=== PATIENT | female | born 1975 | race Caucasian/White ===

== ENCOUNTER 2017-06-04 12:53 | Observation (INO) | payer OTHER ==
[2017-06-04] MEDS ORDERED: ONDANSETRON 4 MG/2 ML VIAL IVP ONE (13:35)
[2017-06-04] MEDS ORDERED: NS 1,000 ML IV ONE (13:35)
[2017-06-04] MEDS ORDERED: MECLIZINE HCL 25 MG TAB PO ONE (13:36)
--- NOTE | 2017-06-04 13:43 | EDPHY ---
H & P Time Seen by Provider: 06/04/17 13:25 HPI/ROS: CHIEF COMPLAINT: Dizziness HISTORY OF PRESENT ILLNESS: Patient has a diagnosis of multiple sclerosis since 2011. Patient started having symptoms at around 7:00 a.m. today. She had bouts of dizziness and disorientation. On further questioning her symptoms have been present constantly since 10:00 a.m. and she describes it as dizziness which is described this is a sensation of movement even when she is still, it is worse with turning her head or moving her eyes. It gets better when she remains still and closes her eyes, associated with nausea. She has also had over the last the 2 weeks some increasing fatigue and numbness and tingling in all of her extremities which she thinks may be an exacerbation of her MS symptoms, since this is typical for her. REVIEW OF SYSTEMS: Eye: no change in vision or double vision ENT: no sore throat Cardiac: no chest pain or syncope Pulmonary: no cough or SOB Abdomen: no vomiting, diarrhea, abdominal pain Musculoskeletal: no back pain or neck pain or recent trauma Skin: no rash Neuro: no headache Constitutional: no fever : no urinary symptoms A comprehensive 10 point review of systems is otherwise negative aside from elements mentioned in the history of present illness. PAST MEDICAL HISTORY: Multiple sclerosis Social history: Nonsmoker General Appearance: Alert and conversant, cooperative. Eyes: No scleral icterus. EOMI. ENT, Mouth: Normal mucous membranes. Normal tympanic membranes. Respiratory: Normal respiratory effort, breath sounds equal, lungs are clear to auscultation. Cardiovascular: Regular rate and rhythm. Gastrointestinal: Abdomen is soft and non tender. Neurological: Alert and oriented x3. Normally conversant. Face symmetric, normal movement and sensation in all extremities. No pronator drift and normal [id number] bilaterally. Does not have truncal ataxia. Skin: Warm and dry, no rashes. Musculoskeletal: No peripheral edema and no joint swelling. Psychiatric: Not agitated. Emergency Department course/MDM: Patient has symptoms of peripheral vertigo. Zofran 4 mg IV and meclizine 25 mg p. o., labs and discussion with her neurologist. Nausea and dizziness with eye motion testing. Discussed with Francisco for Yoko 1412. 1456: Discussed with the patient 's wholesale agronomist neurolgist Dr. Singh; her recommendation is for admission for IV steroids, 1g IV solumedrol daily for at least 3 days, patient is agreeable. She has had this before, understands risks benefits alternatives, consents. I think it is unlikely she has central vertigo , vertebral artery dissection, or cerebellar bleed or ischemia. She will get a Neurology consultation from Dr. diego while she is here. Smoking Status: Never smoked Constitutional: Initial Vital Signs Temperature (C) 36.8 C 06/04/17 13:03 Heart Rate 103 H 06/04/17 13:03 Respiratory Rate 16 06/04/17 13:03 Blood Pressure 133/83 H 06/04/17 13:03 O2 Sat (%) 98 06/04/17 13:03 O2 Delivery Mode Room Air Allergies/Adverse Reactions: Penicillins Allergy (Severe, Verified 06/04/17 17:17) Home Medications: Medication Instructions Recorded Amitriptyline HCl [Elavil 50 mg 75 mg PO DAILY 06/04/17 (*)] Cetirizine [ZyrTEC 10 mg (*)] 10 mg PO PRN PRN 06/04/17 Cholecalciferol Vit D3 [Vitamin D3 1,000 units PO DAILY 06/04/17 (*)] Ibuprofen [Motrin (*)] 200 mg PO PRN PRN 06/04/17 Teriflunomide [Aubagio] 14 mg PO DAILY 06/04/17 Medical Decision Making - Diagnostics EKG Interpretation: 12-lead EKG interpreted by me; official reading is in trace master. My interpretation is sinus rhythm rate 96 no ischemic changes. Differential Diagnosis: Differential diagnosis considered for dizziness including but not limited to peripheral and central causes of vertigo, orthostatic causes including dehydration, and blood loss. Consult/[facility]mit [facility]: [facility] [place] [id number] - Data Points Laboratory Results: Laboratory Results 06/04/17 13:48 06/04/17 13:48 06/04/17 06/04/17 06/04/17 13:48 13:48 13:48 WBC 7.99 10^3/uL 10^3/uL (3.80-9.50) RBC 4.55 10^6/uL 10^6/uL (4.18-5.33) Hgb 13.3 g/dL g/dL (12.6-16.3) Hct 41.3 % % (38.0-47.0) MCV 90.8 fL fL (81.5-99.8) MCH 29.2 pg pg (27.9-34.1) MCHC 32.2 g/dL L g/dL (32.4-36.7) RDW 13.5 % % (11.5-15.2) Plt Count 244 10^3/uL 10^3/uL (150-400) MPV 10.5 fL fL (8.7-11.7) Neut % (Auto) 54.3 % % (39.3-74.2) Lymph % (Auto) 27.4 % % (15.0-45.0) [place] % (Auto) 10.5 % % (4.5-13.0) Eos % (Auto) 6.1 % % (0.6-7.6) Baso % (Auto) 1.4 % % (0.3-1.7) Nucleat RBC Rel Count 0.0 % % (0.0-0.2) Absolute Neuts (auto) 4.34 10^3/uL 10^3/uL (1.70-6.50) Absolute Lymphs (auto) 2.19 10^3/uL 10^3/uL (1.00-3.00) Absolute Monos (auto) 0.84 10^3/uL H 10^3/uL (0.30-0.80) Absolute Eos (auto) 0.49 10^3/uL H 10^3/uL (0.03-0.40) Absolute Basos (auto) 0.11 10^3/uL H 10^3/uL (0.02-0.10) Absolute Nucleated RBC 0.00 10^3/uL 10^3/uL (0-0.01) Immature Gran % 0.3 % % (0.0-1.1) Immature Gran # 0.02 10^3/uL 10^3/uL (0.00-0.10) Sodium 140 mEq/L mEq/L (134-144) Potassium 3.8 mEq/L mEq/L (3.5-5.2) Chloride 104 mEq/L mEq/L (97-110) Carbon Dioxide 24 mEq/l mEq/l (22-31) Anion Gap 12 mEq/L mEq/L (8-16) BUN 7 mg/dL mg/dL (7-23) Creatinine 0.7 mg/dL mg/dL (0.6-1.0) Estimated GFR > 60 Glucose 104 mg/dL H mg/dL (70-100) Calcium 9.4 mg/dL mg/dL (8.5-10.4) Creatine Kinase 124 IU/L IU/L (0-156) Beta HCG, Qual NEGATIVE Medications Given: Discontinued Medications Sodium Chloride (Ns) 1,000 mls @ 0 mls/hr IV EDNOW ONE; Wide Open PRN Reason: Protocol Stop: 06/04/17 13:36 Last Admin: 06/04/17 13:53 Dose: 1,000 mls Methylprednisolone Sodium Succinate 1 gm/ Sodium Chloride 108 mls @ 108 mls/hr IV EDNOW ONE Stop: 06/04/17 15:55 Last Admin: 06/04/17 15:46 Dose: 108 mls Meclizine HCl (Meclizine Hcl) 25 mg PO EDNOW ONE Stop: 06/04/17 13:37 Last Admin: 06/04/17 14:26 Dose: 25 mg Ondansetron HCl (Zofran) 4 mg IVP EDNOW ONE Stop: 06/04/17 13:36 Last Admin: 06/04/17 13:54 Dose: 4 mg Departure - Departure Disposition: [facility] Clinical Impression: Vertigo, Multiple sclerosis Condition: Good
--- NOTE | 2017-06-04 13:57 | CPEKG ---
Heart Rate: 96 RR Interval: 625 P-R Interval: 160 QRSD Interval: 92 QT Interval: 368 QTC Interval: 465 P Leonard: 44 QRS Leonard: 22 T Wave Leonard: 18 EKG Severity - NORMAL ECG - EKG Impression: SINUS RHYTHM Electronically Signed By: Barrera Giron 04-Jun-2017 13:59:20
[2017-06-04 13:58] LABS: % IMMATURE GRANULYOCYTES 0.3 % (0.0-1.1); ABSOLUTE IMMATURE GRANULOCYTES 0.02 10^3/uL (0.00-0.10); ADD DIFF? NO; ADD MORPH? NO; ADD SCAN? NO; ATYPICAL LYMPHOCYTE FLAG 0 (0-99); FRAGMENT RBC FLAG 0 (0-99); HEMATOCRIT 41.3 % (38.0-47.0); HEMOGLOBIN 13.3 g/dL (12.6-16.3); LEFT SHIFT FLG 0 (0-99); LIPEMIA HEMOLYSIS FLAG 80 (0-99); MEAN CELL HEMOGLOBIN 29.2 pg (27.9-34.1); MEAN CELL HEMOGLOBIN CONCENTR. 32.2 g/dL (32.4-36.7); MEAN CELL VOLUME 90.8 fL (81.5-99.8); MEAN PLATELET VOLUME 10.5 fL (8.7-11.7); PLATELET CLUMPS FLAG 0 (0-99); PLATELET COUNT 244 10^3/uL (150-400); RED BLOOD CELL COUNT 4.55 10^6/uL (4.18-5.33); RED CELL DISTRIBUTION WIDTH 13.5 % (11.5-15.2)
[2017-06-04 14:31] LABS: ANION GAP 12 mEq/L (8-16); CALCIUM 9.4 mg/dL (8.5-10.4); CARBON DIOXIDE 24 mEq/l (22-31); CHLORIDE 104 mEq/L (97-110); CREATININE 0.7 mg/dL (0.6-1.0); GLOMERULAR FILTRATION RATE > 60; GLUCOSE 104 mg/dL (70-100); POTASSIUM 3.8 mEq/L (3.5-5.2); SODIUM 140 mEq/L (134-144)
[2017-06-04] MEDS ORDERED: methylPREDNISolone SOD SUCC 1 GM in NS 100 ML IV ONE (14:56)
--- NOTE | 2017-06-04 15:03 | PDCONSULT ---
Rn Cardiovascular Note: I will see patient on rounds tomorrow am. Recommend hospitalist give patient 3 days of 1,000 mg IV solumederol and order brain/cervical MRI w/ and w/o contrast. Call me sooner for any questions.
[2017-06-04] MEDS ORDERED: ONDANSETRON DISINTEGRATING 4 MG TAB PO PRN (17:21)
[2017-06-04] MEDS ORDERED: ACETAMINOPHEN 325 MG TAB PO PRN (17:21)
[2017-06-04] MEDS ORDERED: ONDANSETRON 4 MG/2 ML VIAL IVP PRN (17:21)
[2017-06-04] MEDS ORDERED: IBUPROFEN 200 MG TAB PO PRN (17:22)
[2017-06-04] MEDS ORDERED: CETIRIZINE 10 MG TAB PO PRN (17:22)
--- NOTE | 2017-06-04 18:15 | GHP ---
[f rep st] HISTORY AND PHYSICAL DATE OF ADMISSION: 06/04/2017 CHIEF COMPLAINT: Vertigo, numbness and tingling. HISTORY OF PRESENT ILLNESS: A 42-year-old female with past history of multiple sclerosis diagnosed in 2011, presenting because of concern that her multiple sclerosis symptoms have been ramped up. Over the past 2 weeks she has had increased numbness and tingling in her hands, arms, legs and feet. She has had exquisite muscle fatigue to the point where her legs and arms feel like Jell-O. At work today she noticed episodes of vertigo with associated nausea. Did not have emesis. She felt like she was unstable and disoriented. She did not lose consciousness. She had several episodes today but then a strong one today , which prompted her to come to the hospital. A new symptom she has never had was sharp pain behind her right eye, that was stabbing in nature that lasted 1 minute. She thinks she has had 10 flares of her multiple sclerosis in the past. She is followed by Dr. Sis Babcock as an outpatient. This is her third hospitalization. She denies new headaches. Has intermittent migraines. No visual changes. No fevers, chills, or sweats. No dysuria or urinary frequency. She does endorse increased stressors at home because they are remodeling their condo and work has been more demanding as well. REVIEW OF SYSTEMS: I completed a 10-point review of systems. PAST MEDICAL HISTORY: Multiple sclerosis diagnosed in 2011, IBS. PAST SURGICAL HISTORY: Appendectomy, lumbar spine. SOCIAL HISTORY: Works at [employer]. , with her partner lives here in town. Has 1 drink a month. No illicits or tobacco. FAMILY HISTORY: On maternal side brain cancer. ALLERGIES: Penicillin, anaphylactic. HOME MEDICATIONS: Aubagio, Motrin, vitamin D3, amitriptyline 75 mg daily, Zyrtec as needed. PHYSICAL EXAM: VITAL SIGNS: Temperature 36.9, blood pressure 128/92, heart rate is 104, respirations 12. 94% on room air. GENERAL: Mildly overweight female in no acute distress. HEENT: PERRLA. EOMI. Oropharynx clear. CV: Regular rate and rhythm. No murmurs, gallops, rubs. LUNGS: Clear to auscultation bilaterally. ABDOMEN: Soft, nontender, nondistended. Positive bowel sounds. : No suprapubic tenderness. MUSCULOSKELETAL: 5/5 upper and lower extremity strength. NEURO: 2 through 12 intact. Normal sensation to touch. Reflexes are symmetric biceps, patellar. Alert and oriented x3. LABS: WBC 7.9, hemoglobin 13, hematocrit 41, platelets 244. Sodium 140, potassium 3.8, chloride 104, carbon dioxide 24, creatinine 0.7, glucose 104, calcium 9.4. CK is 124. Negative . EKG personally reviewed by me, normal sinus rhythm. ASSESSMENT AND PLAN: 1. Concern for multiple sclerosis flare: increased numbness, tingling, and fatigue, concerning multiple sclerosis flare. No evidence of infection, but will check a UA. She is followed by Dr. Sis Babcock as an outpatient. She has been hospitalized 2 other times for flares. She is currently on Aubagio. Neurology was called from the emergency room. Recommended intravenous Solu- Medrol, which has been started. We will obtain MRI of brain and cervical spine. Neurology to evaluate in the morning. Resume home medications. 2. Vertigo: Possibly secondary to multiple sclerosis flare. MRI brain is pending. 3. Irritable bowel syndrome, stable. 4. Diet: Regular. 5. Deep venous thrombosis prophylaxis: Low risk. 6. Disposition: Patient warrants observation admission, given vertigo and symptoms concerning for multiple sclerosis flare warranting intravenous steroids and neurology consult. /[id number]/MODL MTDD
[2017-06-04] MEDS ORDERED: GADOBUTROL 10 ML VIAL IVP ONE (18:39)
[2017-06-04 19:20] LABS: COLOR PALE YELLOW; LEUKOCYTE ESTERASE,URINE NEGATIVE (NEGATIVE); NITRITE,URINE NEGATIVE (NEGATIVE)
[2017-06-04 19:33] LABS: MUCUS TRACE /lpf (NONE-1+)
[2017-06-04] MEDS ORDERED: Teriflunomide [Aubagio] 14 MG PO SCH (21:00)
[2017-06-04] MEDS ORDERED: AMITRIPTYLINE HCL 50 MG TAB PO SCH (21:00)
[2017-06-05] MEDS ORDERED: methylPREDNISolone SOD SUCC 1 GM in D5W 100 ML IV SCH (06:30)
[2017-06-05 08:36] VITALS: BP 139/94; PULSE 109; RESP 16; TEMP 97.9; O2SAT 96
[2017-06-05] MEDS ORDERED: CHOLECALCIFEROL VIT D3 1,000 UNITS TAB PO SCH (09:00)
--- NOTE | 2017-06-05 11:35 | ASMTCMCOM ---
CM Note CM Note Notes: Pt in for MS flare, per PT pt no longer has dizziness and has showered, dressed and is ready for dc. Pt is scheduled for outpt infusion for IV steroid dose tomorrow at 8am, no other needs identified. Will dc home with support of when medically stable, CM available for any changes. Date Signed: 06/05/2017 11:34 AM Electronically Signed By:Terese Gonzalez RN
--- NOTE | 2017-06-05 14:08 | NEUROPROG ---
Assessment: [id number] CC: Multiple Sclerosis, Dizziness HPI: Pt with multiple sclerosis (MS) since [address] Sis Kathleen ( neurologist) presents to the [facility] ER 06/04/17 with exacerbation of her MS. Over past 2 weeks she noted increased paresthesias in hands/arms/legs/feet, fatigue, dizziness, right retro-orbital pain, and nausea. She reported her outpt neurologist told her to go to the hospital for 3 days of IV steroids and a brain MRI. Brain/cervical MRI performed which showed no enhancing lesions but did show a few white matter lesions that could be consistent with demyelinating disease. I saw her on 06/05/17 and confirmed above history. PMHx: Multiple Sclerosis (MS) 2011, IBS, appi, lumbar spine Home Meds: Aubagio, motrin, Vitamin D, Elavil 75 mg qd, Zyrtec SHx: no tobacco FHx: brain cancer ROS: Pt denied acute fever, total vision loss, active severe chest pain, respiratory failure, total body severe rash, total bowel/bladder incontinence, psychosis, active seizures, or active bleeding O: VS reviewed General: Alert Eyes: Fundoscopic exam not able to visualize optic disks CV: Heart RRR, no murmur, no carotid bruit Lungs: Clear to auscultation bilaterally, no rhonci or rales Neuro: - Mental: . Oriented x person/place/date . concentration appears normal . speech fluency/comprehension normal . memory appears normal . fund of knowledge appear intact - Cranial Nerves: . II: PERRL, VFFTC . III/IV/: EOMI, no nystagmus, normal smooth pursuits, no Ptosis . V: facial sensation intact to LT . VII: face symmetric to eye closure and smile . VIII: hearing intact to conversation . IX/X: uvula raises symmetrically . XI: SCM 5/5 B/L strength . XII: tongue protrudes midline w/nl strength - Motor: . Tone: normal tone in all 4 extrem . 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 No evidence for abnormal enhancement. (I personally visualized the images on 06/04/17) 06/04/17- C-spine MRI w/ and w/o con: Multiple focal areas of abnormal signal intensity in the brainstem and cervical cord compatible with demyelinating disease as multiple sclerosis. There is a predominant new lesion in the right side of the cord at the level of C3-C4. Question also some slight increased visualization or involvement of the lower cervical and upper thoracic spine. No evidence for abnormal enhancement. 2. Mild multilevel degenerative disk disease of the cervical spine Assessment: 1. Multiple Sclerosis 2. Exacerbation of prior multiple sclerosis symptoms (paresthesias, fatigue) and new vertigo: Unclear cause as no infection or enhancing lesions or stroke seen on brain/cervical MRI. Likely these symptoms are from her known multiple sclerosis. Pt reports her outpatient neurologist wants her given 3 days of IV steroids so will comply with that treatment plan. Plan: - IV Solumedrol 1,000 mg/day x 3 days - Continue Aubagio - F/U with Dr. Sis Kathleen within 1 week of hospital discharge Objective: Vital Signs Temp Pulse Resp BP Pulse Ox 36.6 C 109 H 16 139/94 H 96 06/05/17 08:00 06/05/17 08:00 06/05/17 08:00 06/05/17 08:00 06/05/17 08:00 06/04/17 06/05/17 06/06/17 05:59 05:59 05:59 Intake Total 1000 Output Total 1500 Balance -500 Allergies/Adverse Reactions: Penicillins Allergy (Severe, Verified 06/04/17 17:17)
--- NOTE | 2017-06-05 14:22 | ASDISCHSUM ---
Discharge Information Plan Status:Home with No Needs Medically Cleared to Leave: Discharge Date:06/05/2017 12:35 PM CM D/C Disposition:Home, Routine, Self-Care ADT D/C Disposition:Home, Routine, Self-Care Projected Discharge Date:06/05/2017 12:35 PM Transportation at D/C:Family Discharge Delay Reason: Follow-Up Date:06/05/2017 12:35 PM Discharge Slot: Final Diagnosis: Placement Information Patient Contact Information Contact Name:SOPHIE Relationship: Address:[id number] [place] [address] City:[place] Alternate Phone: [facility]/Zip Code:[place] [address] Email: Financial Information Financial Class:HMO and PPO Plans Primary Plan Desc:[facility] Primary Plan Number:[id number] Secondary Plan Desc: Secondary Plan Number: Assessment Information [facility] CM Progress Note CM Note CM Note Notes: Pt in for MS flare, per PT pt no longer has dizziness and has showered, dressed and is ready for dc. Pt is scheduled for outpt infusion for IV steroid dose tomorrow at 8am, no other needs identified. Will dc home with support of when medically stable, CM available for any changes. Date Signed: 06/05/2017 11:34 AM Electronically Signed By:Terese Gonzalez RN Intervention Information
--- NOTE | 2017-06-05 14:23 | GDS ---
[f rep st] DISCHARGE SUMMARY DISCHARGE DIAGNOSIS: Multiple sclerosis exacerbation. CONSULTATION: Dr. Diego of Neurology. STUDIES AND PROCEDURES: 1. Cervical spine MRI. 2. Brain MRI. PHYSICAL EXAM: GENERAL: The patient is alert. VITAL SIGNS: Afebrile at 36.6, pulse is 109, respir atory rate 16, blood pressure is 139/94, she is saturating 96% on room air. I have seen and evaluate d the patient on the day of discharge. HOSPITAL COURSE: The patient is a 42-year-old female, who presents to the hospital with complaints o f weakness. She was evaluated and diagnosed with MS flare. During this hospitalization, she was uma ated with IV steroid. She received 2 doses. She will receive a 3rd dose of IV steroids in the outpa tient setting. I appreciate Dr. Diego's consultation. DISPOSITION: The patient will be discharged home, to follow up with her primary neurologist, Dr. Amirah Babcock. DISCHARGE MEDICATIONS: Please refer to EMR form. I have not provided the patient any prescriptions at the time of disposition. Again, she will receive a dose of IV [facility]-Medrol [facility] in the outpatient setting. I reviewed the patient's care with Dr. Skip Diego. /[id number]/MODL
[2017-06-06] MEDS ORDERED: methylPREDNISolone SOD SUCC 1 GM in D5W 100 ML IV ONE (12:18)
== END 2017-06-05 12:35 | disposition home or self-care (01) ==
LOC: F3E 16:44
PROVIDERS: ADMIT Internal Medicine; ATTEND Internal Medicine
DX: G35 Multiple sclerosis (principal); R42 Dizziness and giddiness; R53.83 Other fatigue; R20.2 Paresthesia of skin; K58.9 Irritable bowel syndrome, unspecified; Z88.0 Allergy status to penicillin
CPT/HCPCS: 70553; 72156; 93005; 96361; 96365; 96366; 96375; 99285; G0378; A9585; J2405; J2930

== ENCOUNTER 2017-09-04 06:15 | Inpatient (IN) | payer OTHER ==
[2017-09-04] MEDS ORDERED: LORazepam 2 MG/ML INJ IVP PRN (10:12)
[2017-09-04] MEDS ORDERED: ONDANSETRON DISINTEGRATING 4 MG TAB PO PRN (10:12)
[2017-09-04] MEDS ORDERED: D5W 1/2 NS 1,000 ML IV SCH (10:15)
[2017-09-04] MEDS ORDERED: FLUTICASONE NASAL 120 SPRAYS/16 GM MDI EACHNARE PRN (10:46)
[2017-09-04] MEDS ORDERED: DICLOFENAC POTASSIUM 50 MG PO PRN (10:46)
[2017-09-04] MEDS ORDERED: CETIRIZINE 10 MG TAB PO PRN (10:46)
[2017-09-04] MEDS ORDERED: IBUPROFEN 200 MG TAB PO PRN (10:46)
[2017-09-04] MEDS ORDERED: OCRELIZUMAB 300 MG IV SCH (11:00)
--- NOTE | 2017-09-04 12:52 | GHP ---
[f rep st] HISTORY AND PHYSICAL DATE OF ADMISSION: 09/04/2017 DC THIS PARANORMAL INVESTIGATOR, ITS DONE ON THE WRONG MEDICAL RECORD. /[id number]/MODL
--- NOTE | 2017-09-04 12:52 | GHP ---
[f rep st] HISTORY AND PHYSICAL DATE OF ADMISSION: 09/04/2017 CHIEF COMPLAINT: Bloody diarrhea. HISTORY OF PRESENT ILLNESS: The patient is a 42-year-old female who presented to the emergency room in [place] secondary to abdominal cramping with bloody diarrhea. She was evaluated and [facility] and management. The patient states that l ast night she began eating dinner around 7 o'clock after which she developed abdominal cramping and s evere discomfort. She does have a history of irritable bowel syndrome but says that her symptoms do n ot feel like her irritable bowel syndrome. At approximately 10 o'clock the patient developed signifi cant diarrhea. She continued to have diarrhea and around 2:00 am states that she had bloody stools th at have been different than her irritable bowel syndrome in the past. She states that in 2007 she pastrana d 1 episode of bloody stool with abdominal cramping such as this and was seen by Dr. Whittington of gastroe nterology. She denies any fevers, chills, or night sweats. Denies any dyspnea, shortness of breath, or chest pain. She has no other specific complaints other than her abdominal pain with diarrhea and 1 bout of emesis. REVIEW OF SYSTEMS: A comprehensive 10-point review of systems is negative other than noted in the HP I. PAST MEDICAL HISTORY: 1. Multiple sclerosis diagnosed in 2011. 2. IBS. PAST SURGICAL HISTORY: 1. Appendectomy. 2. Lumbar spine surgery. SOCIAL HISTORY: The patient has a partner who was present. She works [employer]. She drinks perhaps once a month. She denies any tobacco or illicit drugs. FAMILY HISTORY: Notable for brain cancer on her maternal side. ALLERGIES: Penicillin. HOME MEDICATIONS: 1. Ocrevus. 2. Cambia. 3. Melatonin. 4. Flonase. 5. Bentyl. 6. Motrin. 7. Vitamin D3. 8. Zyrtec. 9. Elavil. PHYSICAL EXAM: GENERAL: The patient is alert. VITAL SIGNS: Afebrile with pulse of 100, respirator y rate 16, blood pressure is 114/70. She is saturating 98% on room air. HEENT: Normocephalic, atrau matic. Mucosal membranes are moist. Pupils equal, round, reactive to light. LUNGS: Clear to auscu ltation bilaterally. GASTROINTESTINAL: Bowel sounds are diminished. Abdomen is soft. No distention . No guarding. Minimal tenderness. No rebound. SKIN: Without rashes or lesions. MUSCULOSKELETAL: E xtremities have 5/5 strength upper and lower extremities. NEUROLOGIC: The patient is focally intact . LABS: Noted for white count of 18,000. ASSESSMENT AND PLAN: A 42-year-old female, complaining of abdominal pain. 1. Abdominal pain. The patient will receive a CT scan to further evaluate her abdominal discomfort. She had been started on Flagyl as well as Cipro at the [place] emergency room. She did not recei ve the entire doses of ciprofloxacin by the time she arrived here and this was not continued. We will continue to get a CT scan of her abdomen, treat with supportive care, get stool samples and further evaluate the etiology of her abdominal discomfort. 2. Tachycardia. This is in the setting of abdominal discomfort. We will continue supportive hydratio n. 3. History of multiple sclerosis. She did not appear to have any multiple sclerosis flare at this ti ok. 4. History of irritable bowel syndrome. Again, we will ask Gastroenterology to consult on the patie nt after further evaluation or if symptoms become worse, or progressive. 5. Diet. Clear liquids. 6. Deep vein thrombosis. She is low risk. 7. Disposition. She is admitted to observation status and this will be adjusted during the patient's hospital course as needed. /[id number]/MODL
[2017-09-04] MEDS: ONDANSETRON 4 MG/2 ML VIAL IVP PRN ×3 (13:28→22:05)
[2017-09-04] MEDS: DICYCLOMINE 10 MG CAP PO PRN (13:37)
[2017-09-04 14:23] LABS: COLOR PALE YELLOW; LEUKOCYTE ESTERASE,URINE NEGATIVE (NEGATIVE); NITRITE,URINE NEGATIVE (NEGATIVE)
[2017-09-04 14:26] LABS: MUCUS TRACE /lpf (NONE-1+)
[2017-09-04] MEDS ORDERED: IOPAMIDOL (ISOVUE-300) 100 ML BTL ONE (15:33)
--- NOTE | 2017-09-04 16:26 | ASMTCMCOM ---
CM Note CM Note Notes: Pt was admitted with abdominal pain. CT scan pending. She has a hx of MS, colitis and IBS. CM will follow for any d/c needs. Date Signed: 09/04/2017 04:25 PM Electronically Signed By:TANVIR Chaves
[2017-09-04] MEDS ORDERED: NALOXONE HCL 0.4 MG/ML INJ IVP PRN (17:53)
[2017-09-04] MEDS: ACETAMINOPHEN 325 MG TAB PO PRN (17:53)
[2017-09-04] MEDS ORDERED: morphINE PCA 30 MG/30 ML PCA IV PRN (17:53)
[2017-09-04] MEDS: AMITRIPTYLINE HCL 50 MG TAB PO SCH (20:25)
[2017-09-04] MEDS: CHOLECALCIFEROL VIT D3 1,000 UNITS TAB PO SCH (20:28)
[2017-09-04] MEDS: MELATONIN 3 MG TAB PO SCH (20:29)
[2017-09-04 22:44] LABS: OCCULT BLOOD FECES POSITIVE (NEGATIVE)
[2017-09-04 22:45] LABS: O/P DESCRIPTION REDDISH LIQUID STOOL; O/P DIRECT NONE SEEN (NONE SEEN)
[2017-09-05] MEDS: ONDANSETRON 4 MG/2 ML VIAL IVP PRN ×2 (02:52→09:51)
[2017-09-05] MEDS: ACETAMINOPHEN 325 MG TAB PO PRN ×3 (04:46→15:54)
[2017-09-05 05:33] LABS: % IMMATURE GRANULYOCYTES 0.3 % (0.0-1.1); ABSOLUTE IMMATURE GRANULOCYTES 0.04 10^3/uL (0.00-0.10); ADD DIFF? NO; ADD MORPH? NO; ADD SCAN? NO; ATYPICAL LYMPHOCYTE FLAG 0 (0-99); FRAGMENT RBC FLAG 0 (0-99); HEMATOCRIT 37.2 % (38.0-47.0); HEMOGLOBIN 11.9 g/dL (12.6-16.3); LEFT SHIFT FLG 0 (0-99); LIPEMIA HEMOLYSIS FLAG 80 (0-99); MEAN CELL HEMOGLOBIN 29.3 pg (27.9-34.1); MEAN CELL VOLUME 91.6 fL (81.5-99.8); MEAN PLATELET VOLUME 10.1 fL (8.7-11.7); PLATELET CLUMPS FLAG 10 (0-99); PLATELET COUNT 255 10^3/uL (150-400); RED BLOOD CELL COUNT 4.06 10^6/uL (4.18-5.33); RED CELL DISTRIBUTION WIDTH 14.2 % (11.5-15.2)
[2017-09-05 05:46] LABS: ALANINE AMINOTRANSFERASE 29 IU/L (9-52); ALBUMIN 3.2 g/dL (3.5-5.0); ALKALINE PHOSPHATASE 81 IU/L (38-126); ANION GAP 12 mEq/L (8-16); ASPARTATE AMINOTRANSFERASE 18 IU/L (14-46); BILIRUBIN,TOTAL 0.7 mg/dL (0.1-1.4); CALCIUM 8.2 mg/dL (8.5-10.4); CARBON DIOXIDE 28 mEq/l (22-31); CHLORIDE 103 mEq/L (97-110); CREATININE 0.8 mg/dL (0.6-1.0); GLOMERULAR FILTRATION RATE > 60; GLUCOSE 97 mg/dL (70-100); SODIUM 143 mEq/L (134-144); TOTAL PROTEIN 6.1 g/dL (6.3-8.2)
--- NOTE | 2017-09-05 12:46 | HOSPPROG ---
Hospitalist Progress Note Assessment/Plan: 42 yo F w MS here w colitis colitis: seen on CT (images reviewed/interp by me) micro neg hold abx may be IBD as had remote episode of colitis GI to see ADAT multiple sclerosis: not involved bloody stool: 2/2 colitis follow hct benign exam- acute ischemia unlikely anemia: mild; follow dispo: inpt Subjective: less blood. less abd pain Objective: Vital Signs Temp Pulse Resp BP Pulse Ox 36.5 C 72 17 96/65 L 93 09/05/17 10:00 09/05/17 10:00 09/05/17 10:00 09/05/17 10:00 09/05/17 10:00 Microbiology 09/04/17 18:02 Gastrointestinal Tract Panel (PCR) - Final Stool No Organism Detected Laboratory Results 09/05/17 04:35 09/05/17 04:35 09/04/17 09/05/17 09/06/17 05:59 05:59 05:59 Intake Total 1860 Output Total 600 Balance 1260 - Physical Exam Constitutional: no apparent distress, appears nourished Eyes: PERRL, anicteric sclera Ears, Nose, Mouth, Throat: moist mucous membranes, hearing normal Cardiovascular: regular rate and rhythym, no murmur, rub, or gallop Respiratory: no respiratory distress, no rales or rhonchi Gastrointestinal: normoactive bowel sounds, soft, non-tender abdomen Genitourinary: no bladder fullness, No cosby in urethra Skin: warm, normal color Musculoskeletal: full muscle strength Neurologic: AAOx3, sensation intact bilaterally Psychiatric: interacting appropriately ICD10 Worksheet Patient Problems: Problems Problem Status Onset Multiple sclerosis Acute Vertigo Acute
[2017-09-05 14:01] LABS: HEMATOCRIT 33.8 % (38.0-47.0); HEMOGLOBIN 11.2 g/dL (12.6-16.3)
--- NOTE | 2017-09-05 14:06 | PDMN ---
Medical Necessity Medical necessity: C/M review: patient meets INPT crtieria under [facility] [place] M-170 Gastroenteritis; Acute and persistent colitis on CT, bloody stools secondary to colitis, possible inflammatory bowel disease, nausea, abdominal pain requiring planned GI consult, IV fluids 09/04/2017-09/05/2017, ongoing IV Zofran, follow Hgb, Hct, comorbid multiple sclerosis, history of remote episode of colitis. MD anticipates > 2 MN LOS for ongoing med nec for eval and TX of above.
--- NOTE | 2017-09-05 14:27 | PDCONSULT ---
Barytes Grinder Note: I was asked by Dr. Dangelo to evaluate this patient with rectal bleeding and abdominal pain. Patient is a pleasant 42yo female admitted to the hospital for the evaluation of abdominal pain and bloody diarrhea. She was in her usual state of health until Wednesday prior to admission. She developed the acute presentation of N/V/ diarrhea that became bloody. She was travelling in [place] at the time, and on Wednesday, was transferred from the ED there to [facility] for admission and w/u. She reports no similar symptoms, apart from an episode in 2007. She underwent colonoscopy at that time, but does not recall the summary of those findings. She reports no sick contacts or unusual food choices. She reports no fever. Since admission, she has had gradually improving symptoms.
--- NOTE | 2017-09-05 14:31 | PDCONSULT ---
History of Present Illness - General Stated Complaint: abdominal pain, rectal bleeding Source: Patient Exam Limitations: No limitations HPI: I was asked by Dr. Dangelo to evaluate this patient with rectal bleeding and abdominal pain. Patient is a pleasant 42yo female admitted to the hospital for the evaluation of abdominal pain and bloody diarrhea. She was in her usual state of health until Wednesday prior to admission. She developed the acute presentation of N/V/ diarrhea that became bloody. She was travelling in [place] at the time, and on Wednesday, was transferred from the ED there to [facility] for admission and w/u. She reports no similar symptoms, apart from an episode in 2007. She underwent colonoscopy at that time, but does not recall the summary of those findings. She reports no sick contacts or unusual food choices. She reports no fever. Since admission, she has had gradually improving symptoms. Initial Vital Signs: Initial Vital Signs Heart Rate 107 H 09/04/17 09:39 Respiratory Rate 15 09/04/17 09:39 Blood Pressure 118/76 09/04/17 09:39 O2 Sat (%) 97 09/04/17 09:39 O2 Delivery Mode Nasal Cannula O2 (L/minute) 2 Allergies/Adverse Reactions: Penicillins Allergy (Severe, Verified 09/04/17 10:44) Heart stops beating Home Medications: Medication Instructions Recorded Amitriptyline HCl [Elavil 50 mg 75 mg PO HS 06/04/17 (*)] Cetirizine [ZyrTEC 10 mg (*)] 10 mg PO DAILY PRN 06/04/17 Cholecalciferol Vit D3 [Vitamin D3 5,000 units PO HS 06/04/17 (*)] Ibuprofen [Motrin (*)] 600 mg PO DAILY PRN 06/04/17 Diclofenac Potassium [Cambia] 50 mg PO DAILY PRN 09/04/17 Dicyclomine [Bentyl 10 MG (*)] 10 - 20 mg PO DAILY PRN 09/04/17 Fluticasone Nasal [Flonase Nasal 2 sprays NASAL DAILY PRN 09/04/17 [place] (RX)] Melatonin [Melatonin 3 MG (*)] 3 mg PO HS 09/04/17 Ocrelizumab [Ocrevus] 300 mg IV Q180D 09/04/17 Past Medical History PMH: - Medical/Surgical History Hx Asthma: No Hx Chronic Respiratory Disease: No Hx Cardiac Disease: No Hx Diabetes: No Hx Renal Disease: No Hx Alcoholism: No Hx Cirrhosis: No Hx HIV/AIDS: No Hx Splenectomy or Spleen Trauma: No Other PMH: MS, IBS, migraines - Family History Significant Family History: No: Asthma, Heart disease - Social History Smoking Status: Never smoked Alcohol Use: Occasionally Drug Use: None Additional Social History: Review of Systems Review of Systems: - Review of Systems Constitutional: see HPI. denies: chills, fever EENTM: denies: eye pain Respiratory: denies: cough, shortness of breath Cardiac: denies: chest pain, edema Gastrointestinal/Abdominal: abdominal pain, diarrhea, rectal bleeding Genitourinary: see HPI Musculoskelatal: denies: back pain, joint pain, joint swelling Skin: no symptoms Neurological: no symptoms Hematologic/Lymphatic: see HPI Immunologic/allergic: see HPI Physical Exam Physical Exam: - Physical Exam General Appearance: alert, no apparent distress EENT: PERRL/EOMI, normal ENT inspection Neck: non-tender, full range of motion Respiratory: chest non-tender, lungs clear, normal breath sounds Cardiac/Chest: normal peripheral pulses, regular rate, rhythm. No: edema Abdomen: normal bowel sounds, soft. No: non-tender Pelvic Exam: deferred Rectal: normal exam Back: Normal inspection Skin: normal color Neuro/Psych: no motor/sensory deficits, alert, normal mood/affect Assessment & Plan Assessment: 1. Abdominal pain, diarrhea, bleeding - colitis on CT - DDx is infectious, ischemic, or inflammatory. malignancy is unlikely - favor infectious of ischemic etiology - improving with supportive care Plan: 1. Colonoscopy w/ bx tomorrow - given obesity, she is at increased risk of conscious sedation, but those risks do not outweigh the potential benefits - consider dc home tomorrow pending colon results and clinical course Lab and Imaging 09/05/17 13:56 09/05/17 04:35 WBC 13.07 10^3/uL (3.80-9.50) H 09/05/17 04:35 RBC 4.06 10^6/uL (4.18-5.33) L 09/05/17 04:35 Hgb 11.2 g/dL (12.6-16.3) L 09/05/17 13:56 Hct 33.8 % (38.0-47.0) L 09/05/17 13:56 MCV 91.6 fL (81.5-99.8) 09/05/17 04:35 MCH 29.3 pg (27.9-34.1) 09/05/17 04:35 MCHC 32.0 g/dL (32.4-36.7) L 09/05/17 04:35 RDW 14.2 % (11.5-15.2) 09/05/17 04:35 Plt Count 255 10^3/uL (150-400) 09/05/17 04:35 MPV 10.1 fL (8.7-11.7) 09/05/17 04:35 Neut % (Auto) 72.6 % (39.3-74.2) 09/05/17 04:35 Lymph % (Auto) 12.6 % (15.0-45.0) L 09/05/17 04:35 [place] % (Auto) 11.7 % (4.5-13.0) 09/05/17 04:35 Eos % (Auto) 2.4 % (0.6-7.6) 09/05/17 04:35 Baso % (Auto) 0.4 % (0.3-1.7) 09/05/17 04:35 Nucleat RBC Rel Count 0.0 % (0.0-0.2) 09/05/17 04:35 Absolute Neuts (auto) 9.48 10^3/uL (1.70-6.50) H 09/05/17 04:35 Absolute Lymphs (auto) 1.65 10^3/uL (1.00-3.00) 09/05/17 04:35 Absolute Monos (auto) 1.53 10^3/uL (0.30-0.80) H 09/05/17 04:35 Absolute Eos (auto) 0.32 10^3/uL (0.03-0.40) 09/05/17 04:35 Absolute Basos (auto) 0.05 10^3/uL (0.02-0.10) 09/05/17 04:35 Absolute Nucleated RBC 0.00 10^3/uL (0-0.01) 09/05/17 04:35 Immature Gran % 0.3 % (0.0-1.1) 09/05/17 04:35 Immature Gran # 0.04 10^3/uL (0.00-0.10) 09/05/17 04:35 Sodium 143 mEq/L (134-144) 09/05/17 04:35 Potassium 4.0 mEq/L (3.5-5.2) 09/05/17 04:35 Chloride 103 mEq/L (97-110) 09/05/17 04:35 Carbon Dioxide 28 mEq/l (22-31) 09/05/17 04:35 Anion Gap 12 mEq/L (8-16) 09/05/17 04:35 BUN 6 mg/dL (7-23) L 09/05/17 04:35 Creatinine 0.8 mg/dL (0.6-1.0) 09/05/17 04:35 Estimated GFR > 60 09/05/17 04:35 Glucose 97 mg/dL (70-100) 09/05/17 04:35 Calcium 8.2 mg/dL (8.5-10.4) L 09/05/17 04:35 Total Bilirubin 0.7 mg/dL (0.1-1.4) 09/05/17 04:35 AST 18 IU/L (14-46) 09/05/17 04:35 ALT 29 IU/L (9-52) 09/05/17 04:35 Alkaline Phosphatase 81 IU/L (38-126) 09/05/17 04:35 Total Protein 6.1 g/dL (6.3-8.2) L 09/05/17 04:35 Albumin 3.2 g/dL (3.5-5.0) L 09/05/17 04:35 Urine Color PALE YELLOW 09/04/17 13:45 Urine Appearance CLEAR 09/04/17 13:45 Urine pH 5.0 (5.0-7.5) 09/04/17 13:45 Ur Specific [place] 1.010 (1.002-1.030) 09/04/17 13:45 Urine Protein NEGATIVE (NEGATIVE) 09/04/17 13:45 Urine Ketones NEGATIVE (NEGATIVE) 09/04/17 13:45 Urine Blood 2+ (NEGATIVE) H 09/04/17 13:45 Urine Nitrate NEGATIVE (NEGATIVE) 09/04/17 13:45 Urine Bilirubin NEGATIVE (NEGATIVE) 09/04/17 13:45 Urine Urobilinogen NEGATIVE EU (0.2-1.0) 09/04/17 13:45 Ur Leukocyte Esterase NEGATIVE (NEGATIVE) 09/04/17 13:45 Urine RBC 1-3 /hpf (0-3) 09/04/17 13:45 Urine WBC 1-3 /hpf (0-3) 09/04/17 13:45 Ur Epithelial Cells TRACE /lpf (NONE-1+) 09/04/17 13:45 Urine Mucus TRACE /lpf (NONE-1+) 09/04/17 13:45 Ur Culture Indicated? NOT INDICATED (NI) 09/04/17 13:45 Urine Glucose NEGATIVE (NEGATIVE) 09/04/17 13:45 Stool Occult Bld Scrn POSITIVE (NEGATIVE) H 09/04/17 18:05 Stool Ova & Parasites REDDISH LIQUID STOOL 09/04/17 18:05 Direct Microscop Exam NONE SEEN (NONE SEEN) 09/04/17 18:05
[2017-09-05] MEDS ORDERED: PEG 3350/NA SULF,BICARB,CL/KCL (GAVILYTE-G) 4000 ML BTL PO ONE ×2 (14:33→18:00)
[2017-09-05] MEDS: DICYCLOMINE 10 MG CAP PO PRN ×2 (16:01→23:25)
[2017-09-05] MEDS: OXYCODONE/APAP 5/325 TAB PO PRN ×2 (17:01→23:23)
[2017-09-05] MEDS: CHOLECALCIFEROL VIT D3 1,000 UNITS TAB PO SCH (21:07)
[2017-09-05] MEDS: AMITRIPTYLINE HCL 50 MG TAB PO SCH (21:07)
[2017-09-05] MEDS: MELATONIN 3 MG TAB PO SCH (21:08)
[2017-09-05 22:53] LABS: O/P CONCENTRATION NONE SEEN (NONE SEEN)
[2017-09-06] MEDS: OXYCODONE/APAP 5/325 TAB PO PRN (09:00)
[2017-09-06 09:44] LABS: O/P TRICHROME NONE SEEN (NONE SEEN)
--- NOTE | 2017-09-06 10:37 | ASMTCMCOM ---
CM Note CM Note Notes: Reviewed chart and discussed with RN. Pt will have colonoscopy today and then possibly dc later today. No dc needs anticipated. Date Signed: 09/06/2017 10:37 AM Electronically Signed By:Liana Godwin RN
[2017-09-06] MEDS ORDERED: fentaNYL 100 MCG/2 ML INJ ONE ×2 (14:16→14:41)
[2017-09-06] MEDS ORDERED: MIDAZOLAM 2 MG/2 ML VIAL ONE ×3 (14:16→14:41)
[2017-09-06] MEDS ORDERED: fentaNYL 100 MCG/2 ML INJ IVP ONE (14:44)
[2017-09-06] MEDS ORDERED: MIDAZOLAM 2 MG/2 ML VIAL IVP ONE (14:44)
--- NOTE | 2017-09-06 14:59 | GIREPORT ---
[facility] - Endoscopy Department Patient Name: Lilibeth Coker Procedure Date: 09/06/2017 2:20 PM Patient Type: Inpatient Attending MD/ ER Physician: Shanta Elam MD Procedure: Colonoscopy Indications: Generalized abdominal pain, Clinically significant diarrhea of unexplai annita origin, Hematochezia Providers: Shanta Elam MD Medicines: Fentanyl 250 micrograms IV, Midazolam 10 mg IV, Diphenhydramine 50 mg I V Complications: No immediate complications. Description of Procedure: After obtaining informed consent, the scope was passed under direct vis ion. Throughout the procedure, the patient's blood pressure, pulse, and oxyg en saturations were monitored continuously. The Colonoscope with irrigatio n channel was introduced through the anus and advanced to the cecum, identified by appendiceal orifice and ileocecal valve. The colonoscopy was performed without difficulty. The patient tolerated the procedure well. The quality of the bowel preparation was good. The ileocecal valve, appendi ceal orifice, and rectum were photographed. Moderate Sedation: Moderate (conscious) sedation was administered by the endoscopy nurse frankie castro supervised by the endoscopist. The following parameters were monitored: oxygen saturation, heart rate, blood pressure, and response to care. To socorro physician intraservice time was 19 minutes. Findings: The area from rectum to descending colon appeared normal. An area of moderately congested mucosa was found at the splenic flexure . This was biopsied with a cold forceps for histology. The area from transverse colon to cecum appeared normal. Estimated Blood Loss: Estimated blood loss: none. Post Op Diagnosis: - The rectum to descending colon is normal. - Congested mucosa at the splenic flexure. Biopsied. - The transverse colon to cecum is normal. - Findings consistent with ischemic colitis. Recommendation: - Return patient to hospital [facility] for ongoing care. - Await pathology results. - Advance diet as tolerated. - OK to dc home today if tolerating po and having improved pain. Attending Participation: I personally performed the entire procedure. Shanta Elam MD Shanta Elam MD 09/06/2017 2:58:59 PM This report has been signed electronicallyShanta Elam MD Number of Addenda: 0 Note Initiated On: 09/06/2017 2:20 PM Total Procedure Duration Time 0 hours 13 minutes 57 seconds [email or web address]
[2017-09-06 15:05] VITALS: TEMP 98.6
[2017-09-06 16:07] VITALS: O2SAT 98
--- NOTE | 2017-09-06 16:14 | HOSPPROG ---
Hospitalist Progress Note Assessment/Plan: 42 yo F w MS here w colitis colitis: seen on CT (images reviewed/interp by me) micro neg hold abx may be IBD as had remote episode of colitis GI to see ADAT multiple sclerosis: not involved bloody stool: 2/2 colitis follow hct benign exam- acute ischemia unlikely anemia: mild; follow dispo: home today w GI follow up > 30 minutes Subjective: colonoscopy w splenic flexure ischemic colitis Objective: Vital Signs Temp Pulse Resp BP Pulse Ox 37 C 101 H 16 120/77 98 09/06/17 15:01 09/06/17 15:01 09/06/17 16:01 09/06/17 16:01 09/06/17 16:01 Laboratory Results 09/05/17 13:56 09/05/17 04:35 09/05/17 09/06/17 09/07/17 05:59 05:59 05:59 Intake Total 3630 857 5901 Output Total 600 Balance 7588 162 5000 - Physical Exam Constitutional: no apparent distress, appears nourished Eyes: PERRL, anicteric sclera Ears, Nose, Mouth, Throat: moist mucous membranes, hearing normal Cardiovascular: regular rate and rhythym, no murmur, rub, or gallop Respiratory: no respiratory distress, no rales or rhonchi Gastrointestinal: normoactive bowel sounds, soft, non-tender abdomen Genitourinary: No cosby in urethra Skin: warm, normal color Musculoskeletal: full muscle strength Neurologic: AAOx3 ICD10 Worksheet Patient Problems: Problems Problem Status Onset Multiple sclerosis Acute Vertigo Acute
[2017-09-06 16:21] VITALS: BP 116/76; PULSE 91; RESP 14
--- NOTE | 2017-09-07 03:43 | GDS ---
[f rep st] DISCHARGE SUMMARY DISCHARGE DIAGNOSES: 1. Bright red blood per rectum. 2. Ischemic colitis at the splenic flexure. 3. Irritable bowel syndrome. PROCEDURE PERFORMED: Colonoscopy, which demonstrated the aforementioned results. CONSULTATIONS: GI. HOSPITAL COURSE: Please see admission history and physical by SID Antunez. The patient prese nted from [place] where she was visiting with her . She had abdominal pain followed by bright red blood per rectum. She had a bit of blood loss, but nothing requiring transfusion. She had negative stool studies. She underwent colonoscopy showing ischemic colitis. She is doing we ll in recovery and will be discharged home when she is able. She has outpatient followup with GI. I discussed the discharge with the patient and she is comfortab le with that. /[id number]/MODL
== END 2017-09-06 18:08 | disposition home or self-care (01) | DRG 394 ==
LOC: F3N 09:33 → OBSVTOIN 09-05 13:51 → F1N 09-05 15:39
PROVIDERS: ADMIT Family Medicine; ATTEND Internal Medicine
PROC: 0DJD8ZZ Inspection of Lower Intestinal Tract, Via Natural or Artificial Opening Endoscopic (ICD-10-PCS; principal; 2017-09-06 17:30)
PROC: 0DBL8ZX Excision of Transverse Colon, Via Natural or Artificial Opening Endoscopic, Diagnostic (ICD-10-PCS; principal; 2017-09-06 17:30)
DX: K55.031 Focal (segmental) acute (reversible) ischemia of large intestine (principal); K92.1 Melena; K58.9 Irritable bowel syndrome, unspecified; G35 Multiple sclerosis; E66.09 Other obesity due to excess calories; Z68.38 Body mass index [BMI] 38.0-38.9, adult
CPT/HCPCS: G0378; J1200; J2250; J2270; J2405; J3010; Q9967

== ENCOUNTER → 2017-11-19 | Outpatient (CLI) | payer OTHER | LOC: FIMAGING 15:19 | PROVIDERS: ATTEND Family Medicine | DX: Z12.31 Encounter for screening mammogram for malignant neoplasm of breast (principal) ==

== ENCOUNTER → 2017-11-24 | Outpatient (CLI) | payer OTHER ==
[~2017-11-24] MED LIST: IOPAMIDOL (ISOVUE 370) 100 ML BTL IV ONE
== END ==
LOC: FIMAGING 12:45
PROVIDERS: ATTEND Internal Medicine Gastroenterology
DX: K59.1 Functional diarrhea (principal)
CPT/HCPCS: Q9967

== ENCOUNTER → 2017-12-01 | Outpatient (CLI) | payer OTHER | LOC: FIMAGING 13:26 | PROVIDERS: ATTEND Family Medicine | DX: R92.8 Other abnormal and inconclusive findings on diagnostic imaging of breast (principal) ==

== ENCOUNTER → 2018-02-02 | Outpatient (CLI) | payer OTHER ==
[~2018-02-02] MED LIST changes: +GADOBUTROL 10 ML VIAL IVP ONE; -IOPAMIDOL (ISOVUE 370) 100 ML BTL IV ONE
== END ==
LOC: FIMAGING 07:45
PROVIDERS: ATTEND Psychiatry & Neurology Neurology
DX: G35 Multiple sclerosis (principal); R20.2 Paresthesia of skin; G43.009 Migraine without aura, not intractable, without status migrainosus
CPT/HCPCS: A9585

== ENCOUNTER → 2018-10-11 | Outpatient (CLI) | payer OTHER | LOC: FIMAGING 12:57 | PROVIDERS: ATTEND Family Medicine | DX: R10.9 Unspecified abdominal pain (principal); Z90.710 Acquired absence of both cervix and uterus ==

== ENCOUNTER 2019-01-23 14:42 | Emergency (ER) | payer OTHER ==
[2019-01-23] MEDS ORDERED: MECLIZINE HCL 25 MG TAB PO ONE (16:40)
[2019-01-23 16:44] LABS: PLATELET COUNT 319 10^3/uL (150-400)
--- NOTE | 2019-01-23 16:45 | EDPHY ---
H & P Stated Complaint: Intermitant dizzy spells for 4 months, becoming more frequent. Time Seen by Provider: 01/23/19 16:13 HPI/ROS: CHIEF COMPLAINT: Vertigo HISTORY OF PRESENT ILLNESS: 43-year-old female with multiple sclerosis presents with vertigo. Onset of intermittent vertigo 3-4 months ago. The vertigo is described as dizzy spells that cause a room spinning sensation and occasional head rushes. The vertigo has been constant for 3 days. No change with position, head or eye movement. No headache, fever, URI or recent head injury. Baseline numbness of the extremities related to MS without recent change. No weakness. She is currently on Ocrevus IV q6 months. REVIEW OF SYSTEMS: complete 10 point ROS reviewed and is negative except for the noted elements in the HPI - Personal History Current Tetanus Diphtheria and Acellular Pertussis (TDAP): Yes - Medical/Surgical History Hx Asthma: No Hx Chronic Respiratory Disease: No Hx Diabetes: No Hx Cardiac Disease: No Hx Renal Disease: No Hx Cirrhosis: No Hx Alcoholism: No Hx HIV/AIDS: No Hx Splenectomy or Spleen Trauma: No Other PMH: MS, IBS, migraines. - Social History Smoking Status: Never smoked Alcohol Use: Sober Drug Use: None - Physical Exam Exam: General Appearance: Alert, pleasant Eyes: Pupils equal and round, no conjunctival pallor or injection, no nystagmus ENT, Mouth: Mucous membranes moist Neck: Normal inspection Respiratory: Lungs are clear to auscultation Cardiovascular: Regular rate and rhythm Gastrointestinal: Abdomen is soft and nontender Neurological: Alert, oriented x3, cranial nerves II through XII intact, motor 5 /5, gait not assessed Skin: Warm and dry Extremities: Normal inspection Psychiatric: Mood and affect normal Constitutional: Initial Vital Signs Temperature (C) 36.8 C 01/23/19 14:53 Heart Rate 91 01/23/19 14:53 Respiratory Rate 16 01/23/19 14:53 Blood Pressure 128/94 H 01/23/19 14:53 O2 Sat (%) 97 01/23/19 14:53 O2 Delivery Mode Room Air Allergies/Adverse Reactions: Penicillins Allergy (Severe, Verified 09/04/17 10:44) Heart stops beating Home Medications: Medication Instructions Recorded Cetirizine [ZyrTEC 10 mg (*)] 10 mg PO DAILY PRN 06/04/17 Cholecalciferol Vit D3 [Vitamin D3 5,000 units PO HS 06/04/17 (*)] Ibuprofen [Motrin (*)] 600 mg PO DAILY PRN 06/04/17 Diclofenac Potassium [[place]] 50 mg PO DAILY PRN 09/04/17 Dicyclomine [Bentyl 10 MG (*)] 10 - 20 mg PO DAILY PRN 09/04/17 Fluticasone Nasal [Flonase Nasal 2 sprays NASAL DAILY PRN 09/04/17 [place] (RX)] Melatonin [Melatonin 3 MG (*)] 3 mg PO HS 09/04/17 Ocrelizumab [Ocrevus] 300 mg IV Q180D 09/04/17 Meclizine HCl [Meclizine HCl 25 mg 25 mg PO TID PRN #15 tab 01/23/19 (RX,OTC)] Ondansetron Odt [Zofran Odt 4 mg 4 mg PO Q4 PRN #10 tab 01/23/19 (*)] Medical Decision Making - Diagnostics EKG Interpretation: EKG interpreted by me reveals normal sinus rhythm, rate 80, no ST or T segment changes. Interpretation: Normal EKG Imaging Results: Imaging Impressions Brain MRI 01/23/19 16:41 Impression: Stable MRI examination of the brain, without and with contrast. Minimal white matter signal abnormality within the anterior right side of the anuradha and the brainstem is unchanged from the previous study. No new lesion is identified. Results called to the Emergency Department at 6:20 p.m. Imaging: Discussed imaging studies w/ will call clerk Radiologist ED Course/Re-evaluation: This pt presents with intermittent vertigo. Consulted pt's neurologist, Dr. Babcock, requests MRI +/- contrast to r/o new MS lesion. Antivert 25mg orally given. Zofran IV given for nausea. MRI unremarkable, no evidence of acute MS exacerbation. Results d/w pt. Will f /u with Dr. Babcock. Differential Diagnosis: Differential diagnosis includes TIA, stroke, intracranial hemorrhage, tumor, electrolyte abnormality and acute labyrinthitis. - Data Points Laboratory Results: Laboratory Results 01/23/19 16:15 01/23/19 16:15 01/23/19 01/23/19 01/23/19 18:59 16:15 16:15 WBC 9.39 10^3/uL 10^3/uL (3.80-9.50) RBC 4.72 10^6/uL 10^6/uL (4.18-5.33) Hgb 13.2 g/dL g/dL (12.6-16.3) Hct 41.0 % % (38.0-47.0) MCV 86.9 fL fL (81.5-99.8) MCH 28.0 pg pg (27.9-34.1) MCHC 32.2 g/dL L g/dL (32.4-36.7) RDW 14.6 % % (11.5-15.2) Plt Count 319 10^3/uL 10^3/uL (150-400) MPV 10.3 fL fL (8.7-11.7) Neut % (Auto) 66.5 % % (39.3-74.2) Lymph % (Auto) 21.5 % % (15.0-45.0) [place] % (Auto) 7.3 % % (4.5-13.0) Eos % (Auto) 3.5 % % (0.6-7.6) Baso % (Auto) 0.9 % % (0.3-1.7) Nucleat RBC Rel Count 0.0 % % (0.0-0.2) Absolute Neuts (auto) 6.24 10^3/uL 10^3/uL (1.70-6.50) Absolute Lymphs (auto) 2.02 10^3/uL 10^3/uL (1.00-3.00) Absolute Monos (auto) 0.69 10^3/uL 10^3/uL (0.30-0.80) Absolute Eos (auto) 0.33 10^3/uL 10^3/uL (0.03-0.40) Absolute Basos (auto) 0.08 10^3/uL 10^3/uL (0.02-0.10) Absolute Nucleated RBC 0.00 10^3/uL 10^3/uL (0-0.01) Immature Gran % 0.3 % % (0.0-1.1) Immature Gran # 0.03 10^3/uL 10^3/uL (0.00-0.10) Sodium 137 mEq/L mEq/L (135-145) Potassium 4.0 mEq/L mEq/L (3.5-5.2) Chloride 102 mEq/L mEq/L (97-110) Carbon Dioxide 26 mEq/l mEq/l (22-31) Anion Gap 9 mEq/L mEq/L (6-14) BUN 12 mg/dL mg/dL (7-23) Creatinine 0.6 mg/dL mg/dL (0.6-1.0) Estimated GFR > 60 Glucose 94 mg/dL mg/dL (70-100) Calcium 9.3 mg/dL mg/dL (8.5-10.4) Urine Color PALE YELLOW Urine Appearance CLEAR Urine pH 6.0 (5.0-7.5) Ur Specific [place] 1.009 (1.002-1.030) Urine Protein NEGATIVE (NEGATIVE) Urine Ketones NEGATIVE (NEGATIVE) Urine Blood NEGATIVE (NEGATIVE) Urine Nitrate NEGATIVE (NEGATIVE) Urine Bilirubin NEGATIVE (NEGATIVE) Urine Urobilinogen NEGATIVE EU EU (0.2-1.0) Ur Leukocyte Esterase NEGATIVE (NEGATIVE) Urine Glucose NEGATIVE (NEGATIVE) Medications Given: Discontinued Medications Meclizine HCl (Meclizine Hcl) 25 mg PO EDNOW ONE Stop: 01/23/19 16:41 Last Admin: 01/23/19 17:02 Dose: 25 mg Ondansetron HCl (Zofran) 4 mg IVP EDNOW ONE Stop: 01/23/19 18:35 Last Admin: 01/23/19 18:35 Dose: 4 mg Departure - Departure Disposition: Home, Routine, Self-Care Clinical Impression: Vertigo Condition: Good Instructions: Vertigo (ED) Referrals: Rachelle Murrell MD [Primary Care Provider] - As per Instructions Sis Babcock MD [Medical Doctor] - As per Instructions (Call to make an appointment.) Prescriptions: Meclizine HCl [Meclizine HCl 25 mg (RX,OTC)] 25 mg PO TID PRN #15 tab PRN Reason: Dizziness Ondansetron Odt [Zofran Odt 4 mg (*)] 4 mg PO Q4 PRN #10 tab PRN Reason: Nausea
[2019-01-23] MEDS ORDERED: GADOBUTROL 10 ML VIAL IVP ONE (17:13)
[2019-01-23] MEDS ORDERED: ONDANSETRON 4 MG/2 ML VIAL ONE (18:29)
[2019-01-23] MEDS ORDERED: ONDANSETRON 4 MG/2 ML VIAL IVP ONE (18:34)
[2019-01-23 19:28] VITALS: BP 117/86
--- NOTE | 2019-01-23 21:07 | CPEKG ---
Test Reason : OPEN Blood Pressure : / mmHG Vent. Rate : 080 BPM Atrial Rate : 080 BPM P-R Int : 160 ms QRS Dur : 086 ms QT Int : 406 ms P-R-T Axes : 032 030 019 degrees QTc Int : 469 ms Sinus rhythm Confirmed by Rosmery Diaz ([id number]) on 01/23/2019 9:07:21 PM Referred By: ROSMERY DIAZ Confirmed By:Rosmery Diaz
== END 2019-01-23 19:31 | disposition home or self-care (01) ==
DX: R42 Dizziness and giddiness (principal); G35 Multiple sclerosis; Z79.899 Other long term (current) drug therapy
CPT/HCPCS: 96374; A9585; J2405